=== PATIENT | female | born 1965 | race Caucasian/White ===

== ENCOUNTER 2020-01-21 07:17 | Day surgery (SDC) | payer OTHER ==
[2020-01-20 10:53] VITALS: BMI 36.0
[2020-01-21] MEDS ORDERED: LIDOCAINE HCL/PF 1% SDV 5ML VIAL ONE ×2 (07:21→09:58)
[2020-01-21] MEDS ORDERED: DEXAMETHASONE SOD PHOSPHATE/PF 10 MG/ML SDV ONE (07:21)
[2020-01-21] MEDS ORDERED: LIDOCAINE 1% P/F 10 MG/ML VIAL INF ONE (10:05)
[2020-01-21] MEDS ORDERED: BUPIVACAINE HCL/PF 0.5% (5 MG/ML) 30 ML VIAL IJ ONE (10:05)
[2020-01-21] MEDS ORDERED: IOHEXOL 180 MG/1 ML ML IJ ONE (10:06)
[2020-01-21 10:39] VITALS: BP 118/76; PULSE 66; TEMP 97.8
--- NOTE | 2020-01-24 09:04 | PROC ---
Procedure Note Procedure: Pre procedure Diagnosis: Cervical spondylosis Post Procedure Diagnosis: Same Anesthesia: Local Procedure Performed: Right and Left C3 C4 C5 medial branch blocks under flouroscopic Guidance Procedure: After the risks and benefits were explained, informed consent was obtained. The patient was then taken to the procedure room and positioned prone on the procedure table. Time out was performed. The region overlying the appropriate vertebral bodies was identified using fluoroscopy. The skin was prepped and draped in the usual sterile fashion. Using fluoroscopic guidance, 25 gauge 2.5 inch spinal needles were then introduced to the fossa at the center of the waists of the articular pillars where the BILATERAL C3, C4, and C5 medial branches are located. Omnipaque 180 confirmed appropriate needle placement. There was no epidural or vascular flow observed. .5 % bupivacaine was drawn into a syringe. 0.5cc of this solution was then injected at each level. The same procedure was repeated on the LEFT side at the same levels. The patient tolerated the procedure well and there were no complications. The patient was taken to the post procedure recovery area in good condition. Vital signs remained stable before, during, and after the procedure. The patient was given oral and written follow-up instructions. The patient was given a follow up appointment with me in the near future. Kemar Rowan DO
== END 2020-01-21 11:00 | disposition home or self-care (01) ==
LOC: JASU-SURG 07:17
PROVIDERS: ATTEND Pain Medicine Pain Medicine
PROC: 3E0T33Z Introduction of Anti-inflammatory into Peripheral Nerves and Plexi, Percutaneous Approach (ICD-10-PCS; 2020-01-21)
PROC: 3E0T3BZ Introduction of Anesthetic Agent into Peripheral Nerves and Plexi, Percutaneous Approach (ICD-10-PCS; principal; 2020-01-21 09:30)
DX: M47.812 Spondylosis without myelopathy or radiculopathy, cervical region (principal)
CPT/HCPCS: 76000-TC-FY

== ENCOUNTER 2020-02-25 04:31 | Day surgery (SDC) | payer OTHER ==
[2020-02-24 10:37] VITALS: BMI 36.8
[~2020-02-25 04:31] MED LIST: BUPIVACAINE HCL/PF 0.5% (5 MG/ML) 30 ML VIAL IJ ONE; IOHEXOL 180 MG/1 ML ML IJ ONE; LIDOCAINE HCL 1%, 10 MG/ML (20ML VIAL) INF ONE
[2020-02-25] MEDS ORDERED: BUPIVACAINE HCL/PF 0.25% (2.5MG/ML) 10 ML VIAL ONE (07:16)
[2020-02-25] MEDS ORDERED: LIDOCAINE HCL 1%, 10 MG/ML (20ML VIAL) ONE (07:16)
--- NOTE | 2020-02-25 12:11 | HP ---
Admitting History and Physical - Admission Chief Complaint: Low back pain History of Present Illness: Pt complains of axial low back pain likely secondary to lumbar spondylosis History Source: Patient - Past Medical History ...LMP Comment: 2013 - Smoking History Smoking history: Current every day smoker Have you smoked in the past 12 months: Yes Aproximately how many cigarettes per day: 10 Home Medications - Allergies Allergies/Adverse Reactions: Allergies Allergy/AdvReac Type Severity Reaction Status Date / Time morphine Allergy Intermediate Hives Verified 02/24/20 10:32 tramadol Allergy Intermediate Hives Verified 02/24/20 10:32 [place] And Derivatives Allergy Verified 02/25/20 10:49 spicy foods Allergy Uncoded 02/25/20 10:50 - Home Medications Home Medications: Ambulatory Orders Allopurinol [Zyloprim -] 100 mg PO DAILY 01/20/20 Atorvastatin Ca [Lipitor] 40 mg PO HS 01/20/20 Bupropion HCl [Wellbutrin Xl] 300 mg PO DAILY 01/20/20 Clonazepam [Klonopin] 1 mg PO BID 01/20/20 Clonidine HCl 0.1 mg PO HS 01/20/20 Cyclobenzaprine HCl 10 mg PO TID PRN 01/20/20 Escitalopram Oxalate [Lexapro -] 20 mg PO DAILY 01/20/20 Lisinopril [Zestril] 2.5 mg PO DAILY 01/20/20 Metformin HCl [Glucophage] 1,000 mg PO DAILY 01/20/20 Review of Systems - Review of Systems Eyes: reports: No Symptoms HENT: reports: No Symptoms Neck: reports: No Symptoms Cardiovascular: reports: No Symptoms Respiratory: reports: No Symptoms Gastrointestinal: reports: No Symptoms Genitourinary: reports: No Symptoms Breasts: reports: No Symptoms Reported Musculoskeletal: reports: Back Pain Integumentary: reports: No Symptoms Neurological: reports: No Symptoms Endocrine: reports: No Symptoms Hematology/Lymphatic: reports: No Symptoms Psychiatric: reports: No Symptoms Physical Examination Vital Signs: Vital Signs Temperature 97.7 F 02/25/20 10:49 Pulse Rate 68 02/25/20 10:49 Respiratory Rate 20 02/25/20 10:49 Blood Pressure 104/64 02/25/20 10:49 O2 Sat by Pulse Oximetry (%) 97 02/25/20 10:49 Constitutional: Yes: Well Nourished, No Distress, Calm Eyes: Yes: Conjunctiva Clear, EOM Intact HENT: Yes: Atraumatic, Normocephalic Neck: Yes: Trachea Midline Cardiovascular: Yes: Regular Rate and Rhythm Respiratory: Yes: Regular Gastrointestinal: Yes: Soft Musculoskeletal: Yes: Back Pain Extremities: Yes: WNL Edema: No Integumentary: Yes: WNL Neurological: Yes: WNL ...Motor Strength: WNL Imaging - Results X-ray: Image Reviewed Assessment/Plan The patients pain is likley secondary to lumbar spondylosis. I will schedule diagnostic lumbar medial branch blocks bilateral at L3 L4 L5 medial branches.
[2020-02-25] MEDS ORDERED: BUPIVACAINE HCL/PF 0.75% 10 ML VIAL PNB ONE (12:22)
[2020-02-25] MEDS ORDERED: LIDOCAINE HCL 1%, 10 MG/ML (20ML VIAL) INF ONE (12:22)
[2020-02-25] MEDS ORDERED: IOHEXOL 180 MG/1 ML ML IJ ONE (12:22)
[2020-02-25 13:55] VITALS: TEMP 97.8
[2020-02-25 14:01] VITALS: BP 100/60; PULSE 65
--- NOTE | 2020-02-28 21:55 | PROC ---
Procedure Note Procedure: Pre procedure Diagnosis: Lumbar Spondylosis Post Procedure Diagnosis: same Anesthesia: Local Procedure Performed: Right and Left L3 L4 L5 Medial Branch Blocks under Fluoroscopic Guidance Procedure: After the risks and benefits were explained, informed consent was obtained. The patient was then taken to the procedure room and positioned prone on the procedure table. Time out was performed. The region overlying the appropriate vertebral bodies was identified using fluoroscopy. The skin was prepped and draped in the usual sterile fashion. The skin and soft tissues were anesthetized using 1% lidocaine. Using fluoroscopic guidance, 22 gauge 3.5 inch spinal needles were then introduced to the juncture of the superior articular processes and the transverse processes of the RIGHT L3, L4, and L5 medial branches are located. Omnipaque 180 confirmed appropriate needle placement. There was no epidural or vascular flow observed. .75% bupivacaine was drawn into a syringe. 0.5cc of this solution was then injected at each level. The same procedure was repeated on the LEFT side at the same levels. The patient tolerated the procedure well and there were no complications. The patient was taken to the post procedure recovery area in good condition. Vital signs remained stable before, and after the procedure. The patient was given oral follow-up instructions.The patient was givena follow up appointment with me in the near future. Kemar Rowan D.O.
== END 2020-02-25 13:20 | disposition home or self-care (01) ==
LOC: JASU-SURG 04:31
PROVIDERS: ATTEND Pain Medicine Pain Medicine
PROC: 3E0T33Z Introduction of Anti-inflammatory into Peripheral Nerves and Plexi, Percutaneous Approach (ICD-10-PCS; 2020-02-25)
PROC: 3E0T3BZ Introduction of Anesthetic Agent into Peripheral Nerves and Plexi, Percutaneous Approach (ICD-10-PCS; principal; 2020-02-25 11:00)
DX: M47.816 Spondylosis without myelopathy or radiculopathy, lumbar region (principal)
CPT/HCPCS: 76000-TC-FY; 82962

== ENCOUNTER 2020-07-07 04:39 | Day surgery (SDC) | payer OTHER ==
[2020-07-07 11:03] VITALS: BMI 37.8
[2020-07-07] MEDS ORDERED: IOHEXOL 180 MG/1 ML ML IJ ONE ×2 (16:41→16:42)
[2020-07-07] MEDS ORDERED: BUPIVACAINE HCL/PF 0.75% 10 ML VIAL PNB ONE ×2 (16:41→16:42)
[2020-07-07] MEDS ORDERED: LIDOCAINE HCL 1% PRESERVATIVE FREE - 30ML VIAL IJ ONE ×2 (16:41→16:42)
[2020-07-07 17:07] VITALS: PULSE 60
[2020-07-07 17:11] VITALS: TEMP 97.8
[2020-07-07 17:35] VITALS: BP 97/66
== END 2020-07-07 17:30 | disposition home or self-care (01) ==
LOC: JASU-SURG 04:39
PROVIDERS: ATTEND Pain Medicine Pain Medicine
PROC: 3E0T33Z Introduction of Anti-inflammatory into Peripheral Nerves and Plexi, Percutaneous Approach (ICD-10-PCS; 2020-07-07)
PROC: 3E0T3BZ Introduction of Anesthetic Agent into Peripheral Nerves and Plexi, Percutaneous Approach (ICD-10-PCS; principal; 2020-07-07 17:30)
DX: M54.16 Radiculopathy, lumbar region (principal)
CPT/HCPCS: 76000-TC-FY

== ENCOUNTER 2020-09-22 05:35 | Day surgery (SDC) | payer OTHER ==
[2020-09-21 09:05] VITALS: BMI 36.8
[~2020-09-22 05:35] MED LIST changes: -IOHEXOL 180 MG/1 ML ML IJ ONE; -LIDOCAINE HCL 1%, 10 MG/ML (20ML VIAL) INF ONE
[2020-09-22 08:26] VITALS: TEMP 97.2
[2020-09-22] MEDS ORDERED: LIDOCAINE HCL 1%, 10 MG/ML (20ML VIAL) INF ONE (09:29)
[2020-09-22] MEDS ORDERED: IOHEXOL 180 MG/1 ML ML IJ ONE ×2 (09:30)
[2020-09-22] MEDS ORDERED: BUPIVACAINE HCL/PF 0.5% (5 MG/ML) 30 ML VIAL IJ ONE ×2 (09:33→09:36)
[2020-09-22 10:16] VITALS: BP 137/68; PULSE 84
== END 2020-09-22 10:16 | disposition home or self-care (01) ==
LOC: JASU-SURG 05:35
PROVIDERS: ATTEND Pain Medicine Pain Medicine
PROC: BR14YZZ Fluoroscopy of Cervical Facet Joint(s) using Other Contrast (ICD-10-PCS; 2020-09-22)
PROC: 3E0T3BZ Introduction of Anesthetic Agent into Peripheral Nerves and Plexi, Percutaneous Approach (ICD-10-PCS; principal; 2020-09-22 09:30)
DX: M47.812 Spondylosis without myelopathy or radiculopathy, cervical region (principal)
CPT/HCPCS: 76000-TC-FY

== ENCOUNTER → 2022-04-04 | Day surgery (SDC) | payer OTHER | END | disposition home or self-care (01) | LOC: FMAMMOTONE 10:21 | PROVIDERS: ATTEND Family Medicine | PROC: 0HBT3ZX Excision of Right Breast, Percutaneous Approach, Diagnostic (ICD-10-PCS; principal; 2022-04-04) | DX: N60.91 Unspecified benign mammary dysplasia of right breast (principal); N64.89 Other specified disorders of breast; R92.0 Mammographic microcalcification found on diagnostic imaging of breast | CPT/HCPCS: 19081; 76098-TC-FY; 87899; 88305-TC; A4648 ==

== ENCOUNTER → 2022-06-07 | Day surgery (SDC) | payer OTHER | END | disposition home or self-care (01) | LOC: JRADUS-SUR 09:04 | PROVIDERS: ATTEND Surgery Surgical Oncology | PROC: BH40ZZZ Ultrasonography of Right Breast (ICD-10-PCS; principal; 2022-06-07) | DX: N60.91 Unspecified benign mammary dysplasia of right breast (principal) | CPT/HCPCS: 19281; A4648 ==

== ENCOUNTER 2022-06-12 04:00 | Day surgery (SDC) | payer OTHER ==
[2022-06-11 08:27] VITALS: BMI 32.5
[~2022-06-12 04:00] MED LIST changes: -BUPIVACAINE HCL/PF 0.5% (5 MG/ML) 30 ML VIAL IJ ONE; +BUPIVACAINE HCL/PF 0.5% (5MG/ML) 10 ML VIAL NR ONE
[2022-06-12 11:32] VITALS: RESP 18
[2022-06-12] MEDS ORDERED: BUPIVACAINE HCL/PF 0.5% (5MG/ML) 10 ML VIAL ONE (12:51)
[2022-06-12] MEDS ORDERED: FENTANYL CITRATE/PF 50 MCG/ML VIAL ONE ×4 (13:11→14:40)
[2022-06-12] MEDS ORDERED: PROPOFOL 20 ML ONE ×2 (13:11→13:47)
[2022-06-12] MEDS ORDERED: MIDAZOLAM HCL 2 MG/2 ML SINGLE DOSE VIAL ONE (13:11)
[2022-06-12] MEDS ORDERED: KETOROLAC TROMETHAMINE 30 MG/1 ML VIAL ONE (13:26)
[2022-06-12] MEDS ORDERED: ONDANSETRON 4 MG/2 ML VIAL ONE (13:26)
[2022-06-12] MEDS ORDERED: LIDOCAINE 1%/EPI 1:100000 (50 ML MULTI DOSE VIAL) NR ONE (13:35)
[2022-06-12] MEDS ORDERED: oxyCODONE HCL 5 MG TABLET PO PRN (13:47)
[2022-06-12] MEDS ORDERED: ONDANSETRON 4 MG/2 ML VIAL IVPUSH PRN (13:47)
[2022-06-12] MEDS ORDERED: BENZOIN/ALOE VERA/STORAX/TOLU 58 ML BOTTLE ONE (13:56)
[2022-06-12] MEDS ORDERED: BENZOIN/ALOE VERA/STORAX/TOLU 58 ML BOTTLE TP ONE (13:57)
[2022-06-12] MEDS ORDERED: LACTATED RINGERS SOLUTION 1,000 ML IV SCH (14:00)
[2022-06-12 16:05] VITALS: BP 116/60; PULSE 74; TEMP 97.7
== END 2022-06-12 16:07 | disposition home or self-care (01) ==
LOC: JASU-SURG 04:00
PROVIDERS: ATTEND Surgery Surgical Oncology
PROC: 0HBT0ZX Excision of Right Breast, Open Approach, Diagnostic (ICD-10-PCS; principal; 2022-06-12 13:00)
DX: N60.11 Diffuse cystic mastopathy of right breast (principal)
CPT/HCPCS: 76098-TC-FY; 82962; 88307-TC; 93005; 93010; 94760